=== PATIENT | male | born 1975 | race Caucasian/White ===

== ENCOUNTER 2016-11-23 00:48 | Emergency (ER) | payer SELFPAY ==
[~2016-11-23] VITALS: Ht 180.3 cm; Wt 59.9 kg
[2016-11-23 00:48] VITALS: Ht 180.3 cm; Wt 59.9 kg
[~2016-11-23 00:48] MED LIST: ACET-2321 PO; CYCL-375 PO; HYDR-4246 PO
--- OUTSIDE RECORDS SUMMARY | 2016-11-23 00:52 | XMS REPORT ---
Author Author Samy Griselflori [facility] Address [address], [place] [id number] Care Team Providers Care Patient Care Technician Instructor Name Role Phone Grisel Pablo Unavailable [phone] PROBLEMS Type Condition ICD9-CM Code OXI24-AF Code Onset Dates Condition Status SNOMED Code Assessment Superficial thrombophlebitis of left leg I80.02 Jul, Active [id number] ALLERGIES Unknown Allergies SOCIAL HISTORY No smoking Hx information available PLAN OF CARE Activity Details Pending Test CBC With Platelet and Differential Pending Test Comprehensive Metabolic Panel (CMP) Pending Test Sedimentation Rate Pending Test Lipid Panel Pending Test TSH Pending Test eGFR Pending Test Non-HDL Cholesterol ,Reason: VITAL SIGNS MEDICATIONS Medication Instructions Dosage Frequency Start Date End Date Duration Status Ibuprofen 800 MG Orally Three times a day 1 tablet 8h Jul,Aug 30 day(s) Active Tylenol Extra Strength 500 MG Orally every 6 hrs 1 tablet as needed 6h Active RESULTS Name Result Date Reference Range CBC With Platelet and Differential 2016-07-20 WBC 10.2 4.8-10.8 RBC 4.97 4.60-6.20 HGB 14.8 14.0-18.0 HCT 44.3 42.0-52.0 MCV 89.1 82.0-99.0 MCH 29.8 27.0-32.0 MCHC 33.4 32.0-36.0 RDW 13.0 11.5-14.5 MPV 11.0 8.8-14.8 Platelet Count 282 150-400 Immature Granulocytes 0.3 0.0-1.0 Absolute Neutrophils 5.52 1.90-7.00 Absolute Lymphocytes 3.14 0.80-3.30 Absolute Monocytes 0.90 0.30-1.00 Absolute Eosinophils 0.46 0.00-0.50 Absolute Basophils 0.14 0.00-0.20 Neutrophils 54 51-75 Lymphocytes 31 20-46 Monocytes 9 4-11 Eosinophils 5 0-4 Basophils 1 0-2 Comprehensive Metabolic Panel (CMP) 2016-07-20 Glucose 79 70-99 BUN 10 9-21 Creatinine 0.79 0.72-1.25 Calcium 9.9 8.9-10.5 Sodium 141 135-144 Potassium 4.8 3.5-5.2 Chloride 104 99-111 CO2 26 23-31 Albumin 4.6 3.5-5.0 Bilirubin Total 0.4 0.2-1.2 Alkaline Phosphatase 81 40-150 Protein 7.1 6.1-7.7 ALT (SGPT) 9 0-55 AST (SGOT) 15 5-34 Anion Gap 11 3-20 Globulin 2.5 1.8-4.0 Sedimentation Rate 2016-07-20 Sedimentation Rate 8 0-15 Lipid Panel 2016-07-20 Cholesterol 204 0-199 Triglycerides 121 0-149 HDL Cholesterol 32 40-84 LDL Cholesterol 148 0-130 VLDL Cholesterol 24 0-28 Cardiac Risk 6.4 0.0-5.7 TSH 2016-07-20 TSH 1.23 0.35-4.94 eGFR 2016-07-20 eGFR >60 >60 Non-HDL Cholesterol 2016-07-20 Non-HDL Cholesterol 172 0-159 PROCEDURES Procedure Date Ordered Related Diagnosis Body Site COMPLETE CBC W/AUTO DIFF WBC Jul 20, 2016 COMPREHENSIVE METABOLIC PANEL Jul 20, 2016 TSH Jul 20, 2016 SED RATE Jul 20, 2016 LIPID PANEL Jul 20, 2016 IMMUNIZATIONS No Known Immunizations
--- OUTSIDE RECORDS SUMMARY | 2016-11-23 00:53 | XMS REPORT | Continuity of Care Document ---
Author Author [facility] Organization [facility] Address Unknown Phone Unavailable Allergies Active Description Code Type Severity Reaction Onset Reported/Identified Relationship to Patient Clinical Status Yes No Known Medication Allergies NKMA N/A N/A 01/22/2014 Medications Problems Procedures Results Encounters ACCT No. Visit Date/Time Discharge Status Pt. Type Provider Facility Loc./Unit Complaint [id number] 07/14/2015 13:40:00 2014 23:59:00 DIS Outpatient Shirley Aguilar [facility] New FM rech pneumonia cxr befor jamie [id number] 06/29/2015 13:42:00 2014 23:59:00 DIS Outpatient Shirley Aguilar [facility] New FM HOSP FOLLOW UP [id number] 02/26/2015 14:45:00 2014 23:59:00 DIS Outpatient Buck Dobson T [facility] New Uro BLADDER WALL THICKENING [id number] 02/20/2015 12:57:00 2014 23:59:00 DIS Outpatient Oh Murphy Via [facility] FM dr leslie wanted his bladder cked [id number] 09/02/2014 10:47:00 2014 23:59:00 DIS Outpatient Oh Murphy Via [facility] New FM Abominal pain [id number] 08/12/2014 10:27:00 2014 23:59:00 DIS Outpatient Oh Murphy Via [facility] FM Stitches removed [id number] 07/09/2014 12:29:00 Document Registration
--- OUTSIDE RECORDS SUMMARY | 2016-11-23 00:53 | XMS REPORT | Continuity of Care Document ---
Author Author [facility] Organization [facility] Address Unknown Phone Unavailable Support Name Relationship Address Phone ELIANA RAPP MD Caregiver [address] [place] [address] [place] [address] Unavailable KIM BUCK Next Of Kin [address] [address] Insurance Providers Guarantor Bravo Leon Address [address] [address] Email [email or web address] Policy Number [id number] Subscriber's Name Bravo Leon Relationship 18 Self Group Number [id number] Advance Directives Directive Response Recorded Date/Time Advanced Directives Type None 01/22/16 3:35pm Chief Complaint and Reason for Visit Chief Complaint Back Pain or Injury Reason for Visit Low back pain Problems Active Problems Medical Problem Onset Date Status Abdominal pain Unknown Acute Chronic back pain Unknown Chronic Encephalopathy acute Unknown Resolved Fever and chills Unknown Resolved Headache Unknown Acute History of meningitis ~2008 Acute Laceration of left thumb Unknown Acute Migraine Unknown Pneumonia ~2014 Acute Severe sepsis Unknown Acute Tobacco dependence Unknown Chronic Vomiting Unknown Resolved Past Problems Medical Problem Onset Date Low back pain Unknown Superficial thrombophlebitis Unknown Medications Current Home Medications Medication Dose Units Route Directions Days Qty Instructions Start Date Acetaminophen (Tylenol) 325 Mg Tablet 1-2 Tab Oral As Needed 60 Tablet 12/27/15 Cyclobenzaprine Hcl 10 Mg Tablet 1 Tab Oral Three Times A Day 15 Tablet 01/22/16 Hydrocodone/Acetaminophen (Deep Gap 5-325 Tablet) 5-325 Tablet 1 Tab Oral Every 6 Hours as needed for Pain 12 Tablet 01/22/16 Past Home Medications Medication Directions Ordered Status Acetaminophen (Arthritis Pain Relief) 650 Mg Tablet.er, 2 Tab Oral Every 6 Hours as needed for Pain 03/05/15 Discontinued Acyclovir 800 Mg Tablet, 1 Tab Oral 5 Times Daily 06/19/15 Discontinued Amoxicillin 500 Mg Capsule, 1 Cap Oral Three Times A Day 06/19/15 Discontinued Hydrocodone/Acetaminophen (Hydrocodon-Acetaminoph 7.5-325) 1 Tab Tablet, 1 Tab Oral Every 4 Hours as needed for Pain 06/19/15 Discontinued Magnesium Hydroxide (Milk Of Magnesia) 30 Ml Suspension, 30 Ml Oral Daily as needed for Constipation 06/19/15 Discontinued None , 12/26/08 Discontinued Ondansetron Hcl 4 Mg Tablet, 4 Mg Oral Q6h/0300,0900,1500,2100 as needed for Nausea 06/19/15 Discontinued Social History Social History Problem Response Recorded Date/Time Onset Date Status Chewing Tobacco Status No 08/20/2012 10:50pm Not Applicable Not Applicable Hx Substance Use No 01/22/2016 3:47pm Not Applicable Not Applicable Hx Alcohol Use Y OCCASIONALLY 01/22/2016 3:47pm Not Applicable Not Applicable Has the pt used tobacco in the last 12 months Yes 06/16/2015 6:52am Not Applicable Not Applicable Tobacco Usage smoke 06/16/2015 9:00am Not Applicable Not Applicable Query Response Start Date Stop Date Smoking Status Current every day smoker Hospital Discharge Instructions No hospital discharge instructions. Plan of Care Discharge Date 01/22/16 5:00pm Disposition 01 DISCHARGED HOME, SELF-CARE Condition at Discharge Stable Instructions/Education Provided DI for Low Back Pain Prescriptions See Medication Section Additional Instructions/Education Apply head/ice to the area as needed for pain. May continue to wear the brace that you have on for comfort. Use the Deep Gap and the flexeril as needed over the weekend in addition to an anti-inflammatory such as Aleve or Ibuprofen. Follow up with Dr. Heredia next week if not improving. Care Plan and Goals Physician Care Plan Problem:Low back pain Goal: Follow up with primary care provider Instructions: Take medications and follow care plan as discussed/written Functional Status No functional status results. Allergies, Adverse Reactions, Alerts Allergen Type Severity Reaction Status Last Updated No Known Drug Allergies Allergy Unknown Active 01/22/16 Immunizations Query Response on File Recorded Date/Time Hx Influenza Vaccination No 06/16/15 6:52am Hx Pneumococcal Vaccination No 06/16/15 6:52am Hx Tetanus, Diptheria, Pertussis N "NOT FOR A WHILE" 08/24/14 2:05am Hx Influenza Vaccination No 06/16/15 6:52am Hx Tetanus, Diptheria, Pertussis N "NOT FOR A WHILE" 08/24/14 2:05am Influenza Vaccine Hx NONE 01/22/16 3:47pm Vital Signs Acute Vital Signs Vital Response Date/Time Temperature (Fahrenheit) 97.8 deg F (96.8 - 99.1) 01/22/2016 4:57pm Temperature (Calculated Celsius) 36.35044 degrees C (36.0 - 37.3) 01/22/2016 4:57pm Pulse Rate (adult) 66 bpm (60 - 100) 01/22/2016 4:57pm Respiratory Rate 14 breaths/min (10 - 20) 01/22/2016 4:57pm O2 Sat by Pulse Oximetry 99 % (90 - 100) 01/22/2016 4:57pm Blood Pressure 111/68 mm Hg 01/22/2016 4:57pm Blood Pressure 111/68 mm Hg 01/22/2016 4:57pm Height (Feet) 5 feet 01/22/2016 2:37pm Height (Inches) 11.00 inches 01/22/2016 2:37pm Weight (Kilograms) 58.000 kg 01/22/2016 2:37pm Body Mass Index (BMI) 17.0 01/22/2016 2:37pm Results No known relevant diagnostic tests, laboratory data and/or discharge summary. Procedures Procedure Status Date Provider(s) EMERGENCY DEPT VISIT Completed 12/27/15 Encounters Encounter Location Arrival/Admit Date Discharge/Depart Date Attending Provider Departed Emergency Room [facility] 01/22/16 2:18pm 01/22/16 5: 00pm ELIANA RAPP MD Departed Emergency Room [facility] 12/27/15 1:22am 12/27/15 2: 29am BRAVO ADDISON MD Recent Diagnosis
--- OUTSIDE RECORDS SUMMARY | 2016-11-23 00:53 | XMS REPORT | Referral Summary ---
Author Author [facility] Organization [facility] Address Unknown Phone Unavailable Care Team Providers Care Clinical Rehab Liaison Name Role Phone Charlie Murphy Primary Care Physician [phone] Encounter VC Date(s): 03/06/15 - 03/06/15 [facility] [address] [place] [address] [place] [id number]- Discharge Disposition: 01-Home or Self Care Attending Physician: Buck Dobson JR, MD Admitting Physician: Buck Dobson JR, MD Vital Signs No data available for this section Problem List Condition Effective Dates Status Health Status Informant Back pain, Active chronic(Confirmed) Bladder wall Active thickening(Confirmed ) Meningitis(Confirmed 08/07/90 Resolved ) Meningitis, 08/07/08 Resolved viral(Confirmed) Spinal Resolved Menigitis(Confirmed) Tobacco Active patient user(Confirmed) Allergies, Adverse Reactions, Alerts No Known Medication Allergies Medications No data available for this section Results No data available for this section Immunizations Vaccine Date Refusal Reason pneumococcal 23-polyvalent vaccine 06/29/15 Procedures Procedure Date Related Diagnosis Body Site Cystourethroscopy, with calibration and/or 03/06/15 dilation of urethral stricture or stenosis, with or without meatotomy, with or without injection procedure for cystography, male or female.. Cystourethroscopy, with dilation of bladder 03/06/15 for interstitial cystitis; local anesthesia.. Viral meningitis 2008 Meningitis1 1990 1Hospitalization Social History Social History Type Response Smoking Status Current every day smoker; Type: Cigarettes; Tobacco use per day: 1 Pack; Number of years: 25; Total pack years: 25; Started at age: 14 Assessment and Plan No data available for this section
--- OUTSIDE RECORDS SUMMARY | 2016-11-23 00:53 | XMS REPORT | Referral Summary ---
Author Author [facility] Organization [facility] Address Unknown Phone Unavailable Care Team Providers Care Associate Doctor Name Role Phone Charlie Murphy Primary Care Physician [phone] Encounter [facility] Date(s): 02/20/15 - 02/20/15 [facility], [address] [place] [id number]- Discharge Disposition: 01-Home or Self Care Attending Physician: Oh Murphy MD Admitting Physician: Oh Murphy MD Vital Signs Most recent to 1 oldest [Reference Range]: Temperature Tympanic 36.6 degC [36.6-38.1 degC] (02/20/15 1:02 PM) Peripheral Pulse 76 bpm Rate [60-100 bpm] (02/20/15 1:02 PM) Respiratory Rate 16 br/min [14-20 br/min] (02/20/15 1:02 PM) Blood Pressure 104/60 mmHg [90-140/60-90 mmHg] (02/20/15 1:02 PM) Problem List Condition Effective Dates Status Health Status Informant Back pain, Active chronic(Confirmed) Bladder wall Active thickening(Confirmed ) Meningitis(Confirmed 08/07/90 Resolved ) Meningitis, 08/07/08 Resolved viral(Confirmed) Spinal Resolved Menigitis(Confirmed) Tobacco Active patient user(Confirmed) Allergies, Adverse Reactions, Alerts No Known Medication Allergies Medications No Known Medications Results Hematology Most recent to 1 oldest [Reference Range]: WBC [4.8-10.8 9.0 10*3/uL 10*3/uL] (02/20/15 1:59 PM) RBC [4.60-6.20 4.66 10*6/uL 10*6/uL] (02/20/15 1:59 PM) Hgb [14.0-18.0 14.5 gm/dL gm/dL] (02/20/15 1:59 PM) Hct [42.0-52.0 %] 42.1 % (02/20/15 1:59 PM) MCV [82.0-99.0 fL] 90.3 fL (02/20/15 1:59 PM) MCH [27.0-32.0 pg] 31.1 pg (02/20/15 1:59 PM) MCHC [32.0-36.0 34.4 gm/dL gm/dL] (02/20/15 1:59 PM) RDW [11.5-14.5 %] 13.3 % (02/20/15 1:59 PM) Platelet [150-400 290 10*3/uL 10*3/uL] (02/20/15 1:59 PM) MPV [8.8-14.8 fL] 11.3 fL (02/20/15 1:59 PM) Immature 0.1 % Granulocytes (02/20/15 1:59 PM) [0.0-1.0 %] Neutrophils [51-75 59 % %] (02/20/15 1:59 PM) Lymphocytes [20-46 28 % %] (02/20/15 1:59 PM) Monocytes [4-11 %] 10 % (02/20/15 1:59 PM) Eosinophils [0-4 %] 3 % (02/20/15 1:59 PM) Basophils [0-2 %] 1 % (02/20/15 1:59 PM) Neutro Absolute 5.27 10*3 [1.90-7.00 10*3] (02/20/15 1:59 PM) Lymph Absolute 2.55 10*3 [0.80-3.30 10*3] (02/20/15 1:59 PM) Hitchcock Absolute 0.85 10*3 [0.30-1.00 10*3] (02/20/15 1:59 PM) Eos Absolute 0.25 10*3 [0.00-0.50 10*3] (02/20/15 1:59 PM) Baso Absolute 0.06 10*3 [0.00-0.20 10*3] (02/20/15 1:59 PM) Chemistry Most recent to 1 oldest [Reference Range]: Sodium Lvl [135-144 141 mEq/L mEq/L] (02/20/15 1:59 PM) Potassium Lvl 4.4 mEq/L [3.5-5.2 mEq/L] (02/20/15 1:59 PM) Chloride [99-111 105 mEq/L mEq/L] (02/20/15 1:59 PM) CO2 [23-31 mEq/L] 30 mEq/L (02/20/15 1:59 PM) AGAP [3-20] 6 (02/20/15 1:59 PM) BUN [9-21 mg/dL] 12 mg/dL (02/20/15 1:59 PM) Glucose Lvl [70-99 85 mg/dL mg/dL] (02/20/15 1:59 PM) Creatinine Lvl 0.81 mg/dL [0.72-1.25 mg/dL] (02/20/15 1:59 PM) eGFR [>60 mL/min] >60 mL/min 1 (02/20/15 1:59 PM) Calcium Lvl 9.8 mg/dL [8.9-10.5 mg/dL] (02/20/15 1:59 PM) 1Result Comment: Multiply eGFR results by 1.21 for race. Urinalysis Most recent to 1 oldest [Reference Range]: UA Color DkYellow (02/20/15 2:02 PM) UA Appear Clear (02/20/15 2:02 PM) UA pH [5.0-8.0] 6.5 (02/20/15 2:02 PM) UA Leuk Est Trace [Negative] *ABN* (02/20/15 2:02 PM) UA Nitrite Negative [Negative] (02/20/15 2:02 PM) UA Protein Negative [Negative] (02/20/15 2:02 PM) UA Glucose Negative [Negative] (02/20/15 2:02 PM) UA Ketones Trace [Negative] *ABN* (02/20/15 2:02 PM) UA Urobilinogen 1.0 mg/dL [<1.0 mg/dL] (02/20/15 2:02 PM) UA Bili [Negative] Negative (02/20/15 2:02 PM) UA Blood [Negative] Negative (02/20/15 2:02 PM) UA Spec Grav 1.028 [1.003-1.030] (02/20/15 2:02 PM) Type Clean Catch (02/20/15 2:02 PM) UA WBC [0-4] 0-2 (02/20/15 2:02 PM) UA RBC [0-4] 0-4 (02/20/15 2:02 PM) Epithelial Cells 0-2 (02/20/15 2:02 PM) UA Hyal Cast [0-3] 4-6 *ABN* (02/20/15 2:02 PM) Microbiology Reports TEST: Urine Culture STATUS: Auth (Verified) BODY SITE: SOURCE: Urine COLLECTED DATE/TIME: 02/20/15 2:02 PM Urine Culture No growth Immunizations Vaccine Date Refusal Reason pneumococcal 23-polyvalent vaccine 06/29/15 Procedures Procedure Date Related Diagnosis Body Site Collection of venous blood by venipuncture 02/20/15 Viral meningitis 2008 Meningitis1 1990 1Hospitalization Social History Social History Type Response Smoking Status Current every day smoker; Type: Cigarettes; Tobacco use per day: 1 Pack; Number of years: 25; Total pack years: 25; Started at age: 14 Assessment and Plan Extracted from: Title: Office Visit Note Author: Oh Murphy MD Date: 02/20/15 Assessment/Plan Bladder wall thickening Plan: I am setting you up to see Dr. Dobson. I am going to check a urine test and blood test. I am obtaining your MRI from [facility]. Orders: Urine Culture
--- OUTSIDE RECORDS SUMMARY | 2016-11-23 00:53 | XMS REPORT | Continuity of Care Document ---
Author Author [facility] Organization [facility] Address Unknown Phone Unavailable Support Name Relationship Address Phone ALBA VARGHESE MD Caregiver [address] [place] [phone] MAEGAN LOPEZ MD Caregiver [address] [place] [phone] LITO LEON Next Of Kin Unknown [phone] Insurance Providers Payer Name Policy Number Subscriber Name Relationship [facility] [id number] Bravo Leon 16 Self Advance Directives Directive Response Recorded Date/Time Advanced Directives Type None 08/02/14 2:50pm Problems Medical Problems Problem Onset Date Status Laceration of left thumb Unknown Active Laceration of left thumb Unknown Active Medications Medication Dose Route Sig Days/Qty Instructions Order Date Discontinued Date Status [None] 12/26/08 08/21/12 Discontinued Social History Social History Problem Response Recorded Date/Time Chewing Tobacco Status No 08/20/2012 10:50pm Hx Substance Use No 08/02/2014 3:14pm Hx Alcohol Use No 08/02/2014 3:14pm Tobacco Usage smoke 08/02/2014 3:16pm Query Response Start Date Stop Date Smoking Status Current every day smoker Hospital Discharge Instructions No hospital discharge instructions. Plan of Care No plan of care. Functional Status Query Response Date Recorded Physical Hygiene Self August 02, 2014 3:14pm Disabilities None August 02, 2014 3:14pm Devices Used None August 02, 2014 3:14pm Dressing Self August 02, 2014 3:14pm Ambulation Self August 02, 2014 3:14pm Diet Self August 02, 2014 3:14pm Mental Status Alert August 02, 2014 3:20pm Disabilities None August 02, 2014 3:14pm Devices Used None August 02, 2014 3:14pm Physical Hygiene Self August 02, 2014 3:14pm Dressing Self August 02, 2014 3:14pm Ambulation Self August 02, 2014 3:14pm Diet Self August 02, 2014 3:14pm Allergies, Adverse Reactions, Alerts Allergen Type Severity Reaction Status Last Updated No Known Drug Allergies Allergy Unknown Active 08/21/12 Immunizations Name Given Type Hx Influenza Vaccination No Historical Hx Pneumococcal Vaccination No Historical Hx Tetanus, Diptheria, Pertussis N "NOT FOR A WHILE" Historical Hx Influenza Vaccination No Historical Hx Tetanus, Diptheria, Pertussis N "NOT FOR A WHILE" Historical Vital Signs Acute Vital Signs Vital Response Date/Time Temperature (Fahrenheit) 97.5 deg F (96.8 - 99.1) Temperature (Calculated Celsius) 36.58656 degrees C (36.0 - 37.3) Pulse Rate (adult) 67 bpm (60 - 100) Respiratory Rate 20 breaths/min (10 - 20) O2 Sat by Pulse Oximetry 98 % (90 - 100) Blood Pressure 109/62 mm Hg Results Test Source Date Result Interp. Ref. Range Comments Activated Partial Thromboplast Time January 16, 2010 8:11pm 26.9 SEC N 24- 36 Alanine Aminotransferase (ALT/SGPT) August 20, 2012 11:05pm 24 U/L N 21 -72 Albumin August 20, 2012 11:05pm 4.4 G/DL N 3.5-5.0 Albumin/Globulin Ratio August 20, 2012 11:05pm 1.5 RATIO N 1.1-2.2 Alkaline Phosphatase August 20, 2012 11:05pm 77 U/L N 38-126 Anion Gap August 20, 2012 11:05pm 11 MEQ/L N 5-15 Aspartate Amino Transf (AST/SGOT) August 20, 2012 11:05pm 21 U/L N 17- 59 B-Type Natriuretic Peptide January 16, 2010 8:11pm < 15 PG/ML L 15-100 BUN/Creatinine Ratio August 20, 2012 11:05pm 14 RATIO N 6-26 Band Neutrophils # December 27, 2008 4:50am 0.0 T/MM3 - Band Neutrophils % December 27, 2008 4:50am 0.0 % N 0-6 Basophils # (Auto) August 20, 2012 11:05pm 0.1 T/MM3 N 0-0.2 Basophils # (Manual) December 27, 2008 4:50am 0.0 T/MM3 N 0-0.2 Basophils % (Manual) December 27, 2008 4:50am 0.0 % N 0-2 Basophils (%) (Auto) August 20, 2012 11:05pm 0.7 % N 0-2 Blood Urea Nitrogen August 20, 2012 11:05pm 11.0 MG/DL N 9-20 CSF Color December 26, 2008 1:45pm Colorless - Has specimen been collected /obtained? Y CSF Glucose December 26, 2008 1:45pm 57 MG/DL N 40-70 Has specimen been collected/obtained? Y CSF Lymphocytes December 26, 2008 1:45pm 91 % - Has specimen been collected/obtained? Y CSF Monocytes December 26, 2008 1:45pm 9 % - Has specimen been collected/ obtained? Y CSF RBC December 26, 2008 1:45pm 12 /MM3 H 0-0 Has specimen been collected/ obtained? Y CSF Total Protein December 26, 2008 1:45pm 120 MG/DL H 12-60 Has specimen been collected/obtained? Y CSF Turbidity December 26, 2008 1:45pm Clear - Has specimen been collected /obtained? Y CSF WBC December 26, 2008 1:45pm 188 /MM3 H 0-5 Has specimen been collected/ obtained? Y CSF West Nile Virus IgM Antibody December 26, 2008 1:45pm Send out - Calcium Level August 20, 2012 11:05pm 9.2 MG/DL N 8.4-10.2 Calculated Osmolality August 20, 2012 11:05pm 269 MOSM/KG N 261-280 Carbon Dioxide Level August 20, 2012 11:05pm 31 MEQ/L H 22-30 Chlamydia Direct Antigen Assay May 22, 2008 11:00am Negative - Chloride Level August 20, 2012 11:05pm 99 MEQ/L N 98-107 Creatinine August 20, 2012 11:05pm 0.8 MG/DL N 0.8-1.5 D-Dimer January 16, 2010 8:16pm 28 NG/ML N 0-224 <224 NG/ML=PRESUMPTIVE NEGATIVE FOR PE OR DVT>224 NG/ML=ADDITIONAL EVALUATION FOR PE OR DVT RECOMMENDED Eosinophils # (Auto) August 20, 2012 11:05pm 0.2 T/MM3 N 0-0.5 Eosinophils # (Manual) January 16, 2010 8:11pm 0.5 T/MM3 N 0-0.5 Eosinophils % (Manual) January 16, 2010 8:11pm 4.0 % N 0-4 Eosinophils (%) (Auto) August 20, 2012 11:05pm 1.8 % N 0-4 Globulin August 20, 2012 11:05pm 2.9 G/DL N 2.4-3.6 Glucose Level August 20, 2012 11:05pm 83 MG/DL N 75-110 Group B Streptococcus Antigen December 26, 2008 1:45pm Negative - Has specimen been collected/obtained? Y Hematocrit August 20, 2012 11:05pm 42.7 % N 41-53 Hemoglobin August 20, 2012 11:05pm 14.4 GM/DL N 13.5-17.5 Hepatitis A IgM Antibody May 22, 2008 12:02pm Negative - Hepatitis B Core IgM Antibody May 22, 2008 12:02pm Negative - Hepatitis B Surface Antigen May 22, 2008 12:02pm Negative - Hepatitis C Antibody May 22, 2008 12:02pm Negative - Herpes Simplex Virus DNA (PCR) December 26, 2008 1:45pm Sent out - Influenza Type A Antigen December 26, 2008 12:22pm Negative - Influenza Type B Antigen December 26, 2008 1:45pm Negative - Has specimen been collected/obtained? Y Lipase August 20, 2012 11:05pm 70 U/L N 23-300 Lymphocytes # (Auto) August 20, 2012 11:05pm 3.5 T/MM3 N 1-4.8 Lymphocytes # (Manual) January 16, 2010 8:11pm 2.1 T/MM3 N 1-4.8 Lymphocytes % (Manual) January 16, 2010 8:11pm 18.0 % L 23-45 Lymphocytes (%) (Auto) August 20, 2012 11:05pm 28.9 % N 23-45 Mean Corpuscular Hemoglobin August 20, 2012 11:05pm 29.8 UUG N 26-34 Mean Corpuscular Hemoglobin Concent August 20, 2012 11:05pm 33.7 GM/DL N 31-37 Mean Corpuscular Volume August 20, 2012 11:05pm 88.2 UM3 N 80-100 Mean Platelet Volume August 20, 2012 11:05pm 10.7 UM3 N 9.4-12.4 Monocytes # (Auto) August 20, 2012 11:05pm 1.3 T/MM3 H 0-0.8 Monocytes # (Manual) January 16, 2010 8:11pm 0.8 T/MM3 N 0-0.8 Monocytes % (Manual) January 16, 2010 8:11pm 7.0 % N 0-9.0 Monocytes (%) (Auto) August 20, 2012 11:05pm 10.3 % H 0-9.0 N. meningitidis B/E. coli K1 December 26, 2008 1:45pm Negative - Has specimen been collected/obtained? Y N. meningitidis C/W 135 December 26, 2008 1:45pm Negative - Has specimen been collected/obtained? Y Neutrophils # (Auto) August 20, 2012 11:05pm 7.1 T/MM3 N 1.8-7.7 Neutrophils # (Manual) January 16, 2010 8:11pm 8.4 T/MM3 H 1.8-7.7 Neutrophils % (Manual) January 16, 2010 8:11pm 71.0 % H 33-66 Neutrophils (%) (Auto) August 20, 2012 11:05pm 58.1 % N 33-66 Platelet Count August 20, 2012 11:05pm 228 T/MM3 N 130-400 Potassium Level August 20, 2012 11:05pm 3.9 MEQ/L N 3.6-5 Prothromb Time International Ratio January 16, 2010 8:11pm 1.01 N 0.86- 1.10 THERAPUTIC RANGE=2.00-3.00 FOR ANTI-THROMBOSIS THERAPUTIC RANGE=2.50- 3.50 FOR IMPLANTED VALVE RDW Standard Deviation August 20, 2012 11:05pm 40.9 FL N 36.9-50.2 Rapid Plasma Reagin May 22, 2008 12:02pm Nonreactive - Red Blood Count August 20, 2012 11:05pm 4.84 M/MM3 N 4.50-5.90 Sodium Level August 20, 2012 11:05pm 141 MEQ/L N 134-144 Streptococcus pneumoniae Antigen December 26, 2008 1:45pm Negative - Has specimen been collected/obtained? Y Total Bilirubin August 20, 2012 11:05pm 0.50 MG/DL N 0.20-1.30 Total Protein August 20, 2012 11:05pm 7.3 G/DL N 6.3-8.2 Troponin I August 20, 2012 11:05pm < 0.012 ng/ml 0-0.12 White Blood Count August 20, 2012 11:05pm 12.1 T/MM3 H 4.5-11.0 Neisseria meningitidis A/Y Antigen December 26, 2008 1:45pm Negative - Has specimen been collected/obtained? Y HIV (1&2) Antibody Rapid May 22, 2008 12:02pm Negative - --- 23/03 1050 ---HIV previously reported as: NEGATIVE --- 05/23/08 1103 --- HIV previously reported as: --- 05/23/08 1050 --- HIV previously reported as: NEGATIVE Glomerular Filtration Rate Calc August 20, 2012 11:05pm 108 - Immature Granulocyte # (Auto) August 20, 2012 11:05pm 0.03 T/MM3 N 0.00 -0.03 Immature Granulocyte % (Auto) August 20, 2012 11:05pm 0.2 % N 0.0-0.5 Non-Respiratory Viral Culture December 26, 2008 1:45pm Send out - Gram Stain Cerebral Spinal Fluid December 26, 2008 1:45pm Procedures No known history of procedures. Encounters Encounter Location Date/Time Departed Emergency Room [facility] 08/02/14 12:24pm Recent Diagnosis
--- OUTSIDE RECORDS SUMMARY | 2016-11-23 00:53 | XMS REPORT | Continuity of Care Document ---
Author Author [facility] Organization [facility] Address Unknown Phone Unavailable Support Name Relationship Address Phone ORESTES AREVALO Caregiver [facility] [address] [place] [address] ALBA VARGHESE MD Caregiver [address] [place] [address] [phone] LITO LEON Next Of Kin Unknown [phone] Insurance Providers Payer Name Policy Number Subscriber Name Relationship [facility] [id number] Bravo Leon 16 Self Advance Directives Directive Response Recorded Date/Time Advanced Directives Type None 08/24/14 2:05am Problems Medical Problems Problem Onset Date Status Laceration of left thumb Unknown Active Laceration of left thumb Unknown Active Abdominal pain Unknown Active Medications Medication Dose Route Sig Days/Qty Instructions Order Date Discontinued Date Status [None] 12/26/08 08/21/12 Discontinued [No Known Medications] 08/24/14 Active Tramadol HCl 50 Mg PO Q6H/0300,0900,1500,2100 For PAIN 12 Qty Take 1 tablet, by mouth, every 6 hours. 08/24/14 Active Social History Social History Problem Response Recorded Date/Time Chewing Tobacco Status No 08/20/2012 10:50pm Hx Substance Use No 08/24/2014 2:05am Hx Alcohol Use No 08/24/2014 2:05am Tobacco Usage smoke 08/02/2014 3:16pm Query Response Start Date Stop Date Smoking Status Current every day smoker Hospital Discharge Instructions No hospital discharge instructions. Plan of Care No plan of care. Functional Status Query Response Date Recorded Physical Hygiene Self August 24, 2014 2:05am Disabilities None August 24, 2014 2:05am Devices Used None August 24, 2014 2:05am Dressing Self August 24, 2014 2:05am Ambulation Self August 24, 2014 2:05am Diet Self August 24, 2014 2:05am Mental Status Alert Oriented August 24, 2014 2:05am Disabilities None August 24, 2014 2:05am Devices Used None August 24, 2014 2:05am Physical Hygiene Self August 24, 2014 2:05am Dressing Self August 24, 2014 2:05am Ambulation Self August 24, 2014 2:05am Diet Self August 24, 2014 2:05am Allergies, Adverse Reactions, Alerts Allergen Type Severity Reaction Status Last Updated No Known Drug Allergies Allergy Unknown Active 08/24/14 Immunizations Name Given Type Hx Influenza Vaccination No Historical Hx Pneumococcal Vaccination No Historical Hx Tetanus, Diptheria, Pertussis N "NOT FOR A WHILE" Historical Hx Influenza Vaccination No Historical Hx Tetanus, Diptheria, Pertussis N "NOT FOR A WHILE" Historical Tdap 08/02/14 Administered Vital Signs Acute Vital Signs Vital Response Date/Time Temperature (Fahrenheit) 97.1 deg F (96.8 - 99.1) Temperature (Calculated Celsius) 36.88889 degrees C (36.0 - 37.3) Pulse Rate (adult) 73 bpm (60 - 100) Respiratory Rate 18 breaths/min (10 - 20) O2 Sat by Pulse Oximetry 100 % (90 - 100) Blood Pressure 118/68 mm Hg Height 5 ft 11 in Weight 129 lb Body Mass Index 18.0 kg/m^2 Results Test Source Date Result Interp. Ref. Range Comments Activated Partial Thromboplast Time January 16, 2010 8:11pm 26.9 SEC N 24- 36 Alanine Aminotransferase (ALT/SGPT) August 24, 2014 2:32am 29 U/L N 21- 72 Albumin August 24, 2014 2:32am 4.9 G/DL N 3.5-5.0 Albumin/Globulin Ratio August 24, 2014 2:32am 1.7 RATIO N 1.1-2.2 Alkaline Phosphatase August 24, 2014 2:32am 71 U/L N 38-126 Amylase Level August 24, 2014 2:32am 62 U/L N 30-110 Anion Gap August 24, 2014 2:32am 11 MEQ/L N 5-15 Aspartate Amino Transf (AST/SGOT) August 24, 2014 2:32am 25 U/L N 17- 59 B-Type Natriuretic Peptide January 16, 2010 8:11pm < 15 PG/ML L 15-100 BUN/Creatinine Ratio August 24, 2014 2:32am 19 RATIO N 6-26 Band Neutrophils # December 27, 2008 4:50am 0.0 T/MM3 - Band Neutrophils % December 27, 2008 4:50am 0.0 % N 0-6 Basophils # (Auto) August 24, 2014 2:32am 0.1 T/MM3 N 0-0.2 Basophils # (Manual) December 27, 2008 4:50am 0.0 T/MM3 N 0-0.2 Basophils % (Manual) December 27, 2008 4:50am 0.0 % N 0-2 Basophils (%) (Auto) August 24, 2014 2:32am 0.9 % N 0-2 Blood Urea Nitrogen August 24, 2014 2:32am 15.0 MG/DL N 9-20 CSF Color December 26, [...] 1:45pm Send out - Calcium Level August 24, 2014 2:32am 9.9 MG/DL N 8.4-10.2 Calculated Osmolality August 24, 2014 2:32am 269 MOSM/KG N 261-280 Carbon Dioxide Level August 24, 2014 2:32am 29 MEQ/L N 22-30 Chlamydia Direct Antigen Assay May 22, 2008 11:00am Negative - Chloride Level August 24, 2014 2:32am 100 MEQ/L N 98-107 Creatinine August 24, 2014 2:32am 0.8 MG/DL N 0.8-1.5 D-Dimer January 16, 2010 8:16pm 28 NG/ML N 0-224 <224 NG/ML=PRESUMPTIVE NEGATIVE FOR PE OR DVT>224 NG/ML=ADDITIONAL EVALUATION FOR PE OR DVT RECOMMENDED Eosinophils # (Auto) August 24, 2014 2:32am 0.6 T/MM3 H 0-0.5 Eosinophils # (Manual) January 16, 2010 8:11pm 0.5 T/MM3 N 0-0.5 Eosinophils % (Manual) January 16, 2010 8:11pm 4.0 % N 0-4 Eosinophils (%) (Auto) August 24, 2014 2:32am 5.3 % H 0-4 Globulin August 24, 2014 2:32am 2.9 G/DL N 2.4-3.6 Glucose Level August 24, 2014 2:32am 87 MG/DL N 75-110 Group B Streptococcus Antigen December 26, 2008 1:45pm Negative - Has specimen been collected/obtained? Y Hematocrit August 24, 2014 2:32am 41.6 % N 41-53 Hemoglobin August 24, 2014 2:32am 14.1 GM/DL N 13.5-17.5 Hepatitis A IgM Antibody [...] Has specimen been collected/obtained? Y Lipase August 24, 2014 2:32am 84 U/L N 23-300 Lymphocytes # (Auto) August 24, 2014 2:32am 4.1 T/MM3 N 1-4.8 Lymphocytes # (Manual) January 16, 2010 8:11pm 2.1 T/MM3 N 1-4.8 Lymphocytes % (Manual) January 16, 2010 8:11pm 18.0 % L 23-45 Lymphocytes (%) (Auto) August 24, 2014 2:32am 38.7 % N 23-45 Mean Corpuscular Hemoglobin August 24, 2014 2:32am 30.5 UUG N 26-34 Mean Corpuscular Hemoglobin Concent August 24, 2014 2:32am 33.9 GM/DL N 31-37 Mean Corpuscular Volume August 24, 2014 2:32am 90.0 UM3 N 80-100 Mean Platelet Volume August 24, 2014 2:32am 10.5 UM3 N 9.4-12.4 Monocytes # (Auto) August 24, 2014 2:32am 0.8 T/MM3 N 0-0.8 Monocytes # (Manual) January 16, 2010 8:11pm 0.8 T/MM3 N 0-0.8 Monocytes % (Manual) January 16, 2010 8:11pm 7.0 % N 0-9.0 Monocytes (%) (Auto) August 24, 2014 2:32am 7.6 % N 0-9.0 N. meningitidis B/E. coli K1 December 26, 2008 1:45pm Negative - Has specimen been collected/obtained? Y N. meningitidis C/W 135 December 26, 2008 1:45pm Negative - Has specimen been collected/obtained? Y Neutrophils # (Auto) August 24, 2014 2:32am 5.0 T/MM3 N 1.8-7.7 Neutrophils # (Manual) January 16, 2010 8:11pm 8.4 T/MM3 H 1.8-7.7 Neutrophils % (Manual) January 16, 2010 8:11pm 71.0 % H 33-66 Neutrophils (%) (Auto) August 24, 2014 2:32am 47.2 % N 33-66 Platelet Count August 24, 2014 2:32am 240 T/MM3 N 130-400 Potassium Level August 24, 2014 2:32am 3.9 MEQ/L N 3.6-5 Prothromb Time International Ratio January 16, 2010 8:11pm 1.01 N 0.86- 1.10 THERAPUTIC RANGE=2.00-3.00 FOR ANTI-THROMBOSIS THERAPUTIC RANGE=2.50- 3.50 FOR IMPLANTED VALVE RDW Standard Deviation August 24, 2014 2:32am 41.2 FL N 36.9-50.2 Rapid Plasma Reagin May 22, 2008 12:02pm Nonreactive - Red Blood Count August 24, 2014 2:32am 4.62 M/MM3 N 4.50-5.90 Sodium Level August 24, 2014 2:32am 140 MEQ/L N 134-144 Streptococcus pneumoniae Antigen December 26, 2008 1:45pm Negative - Has specimen been collected/obtained? Y Total Bilirubin August 24, 2014 2:32am 0.40 MG/DL N 0.20-1.30 Total Protein August 24, 2014 2:32am 7.8 G/DL N 6.3-8.2 Troponin I August 20, 2012 11:05pm < 0.012 ng/ml 0-0.12 Urine Bilirubin August 24, 2014 2:36am Negative - Has specimen been collected/obtained? Y Urine Blood August 24, 2014 2:36am Negative - Has specimen been collected/obtained? Y Urine Collection Type August 24, 2014 2:36am Cleancatch-midstream - Has specimen been collected/obtained? Y Urine Color August 24, 2014 2:36am Yellow - Has specimen been collected/obtained? Y Urine Glucose (UA) August 24, 2014 2:36am Negative - Has specimen been collected/obtained? Y Urine Ketones August 24, 2014 2:36am Negative - Has specimen been collected/obtained? Y Urine Leukocyte Esterase August 24, 2014 2:36am Negative - Has specimen been collected/obtained? Y Urine Nitrite August 24, 2014 2:36am Negative - Has specimen been collected/obtained? Y Urine Protein August 24, 2014 2:36am Negative - Has specimen been collected/obtained? Y Urine Specific [place] August 24, 2014 2:36am 1.025 - Has specimen been collected/obtained? Y Urine Turbidity August 24, 2014 2:36am Clear - Has specimen been collected/obtained? Y Urine Urobilinogen August 24, 2014 2:36am 1.0 EU/DL - Has specimen been collected/obtained? Y Urine pH August 24, 2014 2:36am 6.5 - Has specimen been collected/ obtained? Y White Blood Count August 24, 2014 2:32am 10.6 T/MM3 N 4.5-11.0 Chemistry Specimen Hemolysis August 24, 2014 2:32am 17 N 0-25 0-25: No Hemolysis.26-70: Slight Hemolysis - can falsely elevate K and Urine Protein. 71-285: Moderate Hemolysis - can falsely elevate K, Troponin I, CA 19-9, PTH, CSF GLucose, and Urine Protein, and can falsely decrease Phenytoin. 286-999: Gross Hemolysis - can falsely elevate K, Troponin I, CA 19-9, PTH, CSF Glucose, and Urine Protine, and can falsely decrease Phenytoin. Recommend specimen recollection. Urinalysis Comment August 24, 2014 2:36am Microscopic not ind. - Has specimen been collected/obtained? Y Neisseria meningitidis A/Y Antigen December 26, 2008 1:45pm Negative - Has specimen been collected/obtained? Y HIV (1&2) Antibody Rapid May 22, 2008 12:02pm Negative - --- 23/03 105 ---HIV previously reported as: NEGATIVE --- 05/23/08 1103 --- HIV previously reported as: --- 05/23/08 105 --- HIV previously reported as: NEGATIVE Turbidity August 24, 2014 2:32am < 20 0-20 Glomerular Filtration Rate Calc August 24, 2014 2:32am 107 - Immature Granulocyte # (Auto) August 24, 2014 2:32am 0.03 T/MM3 N 0.00- 0.03 Immature Granulocyte % (Auto) August 24, 2014 2:32am 0.3 % N 0.0-0.5 Icterus Index August 24, 2014 2:32am < 2 0-7 Non-Respiratory Viral Culture December 26, 2008 1:45pm Send out - Gram Stain Cerebral Spinal Fluid December 26, 2008 1:45pm Procedures Procedure Status Date Provider(s) RPR S/N/AX/GEN/TRNK 2.5CM/< completed 08/02/14 MAEGAN LOPEZ MD IMMUNIZATION ADMIN completed 08/02/14 TDAP VACCINE 7 YRS/> IM completed 08/02/14 EMERGENCY DEPT VISIT completed 08/02/14 [id number]"INJECTION, BUPIVICAINE HYDROCHLORIDE, 30 ML" completed 08/02/14 Encounters Encounter Location Date/Time Departed Emergency Room [facility] 08/24/14 1:49am Departed Emergency Room [facility] 08/02/14 12:24pm Recent Diagnosis
--- OUTSIDE RECORDS SUMMARY | 2016-11-23 00:53 | XMS REPORT | Referral Summary ---
Author Organization Unknown Address Unknown Phone Unavailable Care Team Providers Care Geological Engineering Teacher Name Role Phone Charlie Murphy Primary Care Physician [phone] Encounter VC Date(s): 09/02/14 - 09/02/14 [facility], [place], Family [address] [place] [id number] Discharge Diagnosis: Abdominal pain Discharge Disposition: Home or Self Care Attending Physician: Oh Murphy MD Admitting Physician: Oh Murphy MD Vital Signs Most recent to 1 oldest [Reference Range]: Temperature Oral 36.2 degC [35.8-37.3 degC] (09/02/14 10:57 AM) Peripheral Pulse 79 bpm Rate [60-100 bpm] (09/02/14 10:57 AM) Respiratory Rate 16 br/min [14-20 br/min] (09/02/14 10:57 AM) Blood Pressure 121/72 mmHg [90-140/60-90 mmHg] (09/02/14 10:57 AM) Most recent to 1 oldest [Reference Range]: SpO2 96 % (09/02/14 10:57 AM) Problem List Condition Effective Dates Status Health Status Informant Back pain, Active chronic(Confirmed) Meningitis(Confirmed 08/07/90 Resolved ) Meningitis, 08/07/08 Resolved viral(Confirmed) Spinal Resolved Menigitis(Confirmed) Tobacco Active patient user(Confirmed) Allergies, Adverse Reactions, Alerts No Known Medication Allergies Medications aspirin 325 mg oral tablet 2 tabs, Oral, Daily, as needed for pain, # 30 tabs, 0 Refill(s) Start Date: 02/14/14 Status: Ordered traMADol 50 mg oral tablet 1 tabs, Oral, Daily, as needed for pain, 0 Refill(s) Start Date: 09/02/14 Status: Ordered Results Hematology Most recent to 1 oldest [Reference Range]: WBC [4.8-10.8 K/uL] 10.1 K/uL (09/02/14 11:30 AM) RBC [4.60-6.20 M/uL] 4.72 M/uL (09/02/14 11:30 AM) Hgb [14.0-18.0 14.6 gm/dL gm/dL] (09/02/14 11:30 AM) Hct [42.0-52.0 %] 41.9 % *LOW* (09/02/14 AM) MCV [82.0-99.0 fL] 88.8 fL (09/02/14 1130 AM) MCH [27.0-32.0 pg] 30.9 pg (09/02/14 11:30 AM) MCHC [32.0-36.0 34.8 gm/dL gm/dL] (09/02/14 11:30 AM) RDW [11.5-14.5 %] 12.9 % (09/02/14 11:30 AM) Platelet [150-400 270 K/uL K/uL] (09/02/14 11:30 AM) MPV [8.8-14.8 fL] 11.3 fL (09/02/14 11:30 AM) Immature 0.2 % Granulocytes (09/02/14:30 AM) [0.0-1.0 %] Neutrophils [51-75 56 % %] (09/02/14 11:30 AM) Lymphocytes [20-46 28 % %] (09/02/14 11:30 AM) Monocytes [4-11 %] 10 % (09/02/14 11:30 AM) Eosinophils [0-4 %] 5 % *HI* (09/02/14 1130 AM) Basophils [0-2 %] 1 % (09/02/14 11:30 AM) Neutro Absolute 5.64 THOUS [1.90-7.00 THOUS] (09/02/14 11:30 AM) Lymph Absolute 2.83 THOUS [0.80-3.30 THOUS] (09/02/14 11:30 AM) [place] Absolute 1.00 THOUS [0.30-1.00 THOUS] (09/02/14 11:30 AM) Eos Absolute 0.51 THOUS [0.00-0.50 THOUS] *HI* (1/27/15 11:30 AM) Baso Absolute 0.11 THOUS [0.00-0.20 THOUS] (09/02/14 11:30 AM) Chemistry Most recent to 1 oldest [Reference Range]: Sodium Lvl [135-144 140 mEq/L mEq/L] (09/02/14 11:30 AM) Potassium Lvl 5.3 mEq/L [3.5-5.2 mEq/L] *HI* (09/02/14 11:30 AM) Chloride [99-111 106 mEq/L mEq/L] (09/02/14 11:30 AM) CO2 [23-31 mEq/L] 28 mEq/L (09/02/14 11:30 AM) AGAP [3-20] 6 (09/02/14 11:30 AM) BUN [9-21 mg/dL] 8 mg/dL *LOW* (09/02/14 11:30 AM) Glucose Lvl [70-99 84 mg/dL mg/dL] (09/02/14 11:30 AM) Creatinine Lvl 0.80 mg/dL [0.72-1.25 mg/dL] (09/02/14 11:30 AM) eGFR [>60 mL/min] >60 mL/min 1 (09/02/14 11:30 AM) Calcium Lvl 10.1 mg/dL [8.9-10.5 mg/dL] (09/02/14 11:30 AM) Albumin Lvl [3.5-5.0 4.5 gm/dL gm/dL] (09/02/14 11:30 AM) Total Protein 6.9 gm/dL [6.4-8.3 gm/dL] (09/02/14 11:30 AM) Globulin [1.8-4.0 2.4 gm/dL gm/dL] (09/02/14 11:30 AM) ALT [0-55 unit/L] 11 unit/L (09/02/14 11:30 AM) AST [5-34 unit/L] 16 unit/L (09/02/14 11:30 AM) Alk Phos [40-150 75 unit/L unit/L] (09/02/14 11:30 AM) Bili Total [0.2-1.2 0.5 mg/dL mg/dL] (09/02/14 11:30 AM) 1Result Comment: Multiply eGFR results by 1.21 for race. Urinalysis Most recent to 1 oldest [Reference Range]: UA Color Yellow (09/02/14 11:35 AM) UA Appear Clear (09/02/14 11:35 AM) UA pH [5.0-8.0] 7.0 (09/02/14 11:35 AM) UA Leuk Est Negative [Negative] (09/02/14 11:35 AM) UA Nitrite Negative [Negative] (09/02/14 11:35 AM) UA Protein Negative [Negative] (09/02/14 11:35 AM) UA Glucose Negative [Negative] (09/02/14 11:35 AM) UA Ketones Negative [Negative] (09/02/14 11:35 AM) UA Urobilinogen 0.2 mg/dL [<1.0 mg/dL] (09/02/14 11:35 AM) UA Bili [Negative] Negative (09/02/14 11:35 AM) UA Blood [Negative] Negative (09/02/14 11:35 AM) UA Spec Grav 1.025 [1.003-1.030] (09/02/14 11:35 AM) Type Clean Catch (09/02/14 11:35 AM) Immunizations No data available for this section Procedures Procedure Date Related Diagnosis Body Site Collection of venous blood by venipuncture 09/02/1406-Aug-2014 00:38:50<$> Viral meningitis 2008 Meningitis1 1990 1Hospitalization Social History Social History Type Response Smoking Status Current every day smoker; Type: Cigarettes; Tobacco use per day: 1 Pack; Number of years: 25; Total pack years: 25; Started at age: 14 Assessment and Plan Extracted from: Title: Office Visit Note Author: Oh Murphy MD Date: 09/02/14 Assessment/Plan Abdominal pain I would use Tylenol or ibuprofen. I am going to check some lab tests CT scan. I will update your plan at that time. If you develop bloody stools or vomiting high fevers or any concerning signs or symptoms call or let us know. Ordered: CBC w/ Differential Comprehensive Metabolic Panel CT ABD & Pelv w/contrast Urinalysis with Culture if Indicated
--- OUTSIDE RECORDS SUMMARY | 2016-11-23 00:53 | XMS REPORT | Referral Summary ---
Author Author [facility] [place] Organization [facility] Address Unknown Phone Unavailable Care Team Providers Care Last Picker Name Role Phone Charlie Murphy Primary Care Physician [phone] Encounter VC Date(s): 06/29/15 - 06/29/15 [facility] [place] [address] [place] [id number] Discharge Diagnosis: Tobacco user Discharge Diagnosis: Sepsis Discharge Diagnosis: Aseptic meningitis Discharge Diagnosis: Pneumonia Discharge Disposition: 01-Home or Self Care Attending Physician: Shirley Aguilar APRN Admitting Physician: Shirley Aguilar APRN Vital Signs Most recent to 1 oldest [Reference Range]: Temperature Tympanic 36.7 degC [36.6-38.1 degC] (06/29/15 1:53 PM) Peripheral Pulse 88 bpm Rate [60-100 bpm] (06/29/15 1:53 PM) Blood Pressure 100/70 mmHg [90-140/60-90 mmHg] (06/29/15 1:53 PM) Problem List Condition Effective Dates Status Health Status Informant Back pain, Active chronic(Confirmed) Bladder wall Active thickening(Confirmed ) Meningitis(Confirmed 08/07/90 Resolved ) Meningitis, 08/07/08 Resolved viral(Confirmed) Spinal Resolved Menigitis(Confirmed) Tobacco Active patient user(Confirmed) Allergies, Adverse Reactions, Alerts No Known Medication Allergies Medications ondansetron 4 mg oral tablet 4 mg 1 tabs, Oral, q6hr, as needed for nausea/vomiting, 0 Refill(s) Start Date: 06/23/15 Status: Ordered Results No data available for this section Immunizations Vaccine Date Refusal Reason pneumococcal 23-polyvalent vaccine 06/29/15 Procedures Procedure Date Related Diagnosis Body Site Viral meningitis 2008 Meningitis1990 1Hospitalization Social History Social History Type Response Smoking Status Current every day smoker; Type: Cigarettes; Tobacco use per day: 1 Pack; Number of years: 25; Total pack years: 25; Started at age: 14 Assessment and Plan Extracted from: Title: Office Visit Note-hosp f/u Author: Shirley Aguilar CARPET INSTALLER HELPER Date: Assessment/Plan 1.Pneumonia Clinically improved. Plan recheck in 2 weeks with a chest x- ray prior to office visit. Recommend patient take deun-uze-uorduai Mucinex as an expectorant. Strongly encourage smoking cessation. Patient not interested. Pneumovax counseled on and given. Patient to return to the office if symptoms get worse. Ordered: pneumococcal 23-polyvalent vaccine, 0.5 mL, IntraMuscular, Once, First Dose: 15:00:00 PC SUPPORT SPECIALIST, Stop Date: 06/29/15 15:00:00 PC SUPPORT SPECIALIST, Form: Vial Trans Care Mgmt 14 Day Disch 91413 XR Chest 2 Views 2.Aseptic meningitis Resolved. Ordered: Trans Care Mgmt 14 Day Disch 73433 3.Sepsis Resolved. Ordered: Trans Care Mgmt 14 Day Disch 12429 Tobacco user Encourage cessation. Ordered: Trans Care Mgmt 14 Day Disch [id number]
--- OUTSIDE RECORDS SUMMARY | 2016-11-23 00:53 | XMS REPORT | Continuity of Care Document ---
Author Author [facility] Organization [facility] Address Unknown Phone Unavailable Support Name Relationship Address Phone MAXWELL ADDISON MD Caregiver [address] [place] [address] [place] [address] Unavailable KIM BUCK Next Of Kin [address] [address] Insurance Providers Guarantor Maxwell Leon Address [address] [address] Email [email or web address] Policy Number [id number] Subscriber's Name Maxwell Leon Relationship 18 Self Group Number [id number] Chief Complaint and Reason for Visit Chief Complaint Lower Extremity Pain Reason for Visit Superficial thrombophlebitis Problems Active Problems Medical Problem Onset Date Status Abdominal pain Unknown Acute Chronic back pain Unknown Chronic Encephalopathy acute Unknown Resolved Fever and chills Unknown Resolved Headache Unknown Acute History of meningitis ~2008 Acute Laceration of left thumb Unknown Acute Migraine Unknown Pneumonia ~2014 Acute Severe sepsis Unknown Acute Tobacco dependence Unknown Chronic Vomiting Unknown Resolved Past Problems Medical Problem Onset Date Superficial thrombophlebitis Unknown Medications Current Home Medications Medication Dose Units Route Directions Days Qty Instructions Start Date Acetaminophen (Tylenol) 325 Mg Tablet 1-2 Tab Oral As Needed 60 Tablet 12/27/15 Past Home Medications Medication Directions Ordered Status [...] Applicable Not Applicable Hx Substance Use No 12/27/2015 1:34am Not Applicable Not Applicable Hx Alcohol Use Y OCCASIONALLY 12/27/2015 1:34am Not Applicable Not Applicable Has the pt used tobacco in the last 12 months Yes 06/16/2015 6:52am Not Applicable Not Applicable Tobacco Usage smoke 06/16/2015 9:00am Not Applicable Not Applicable Query Response Start Date Stop Date Smoking Status Current every day smoker Hospital Discharge Instructions No hospital discharge instructions. Plan of Care Discharge Date 12/27/15 2:29am Disposition 01 DISCHARGED HOME, SELF-CARE Condition at Discharge Improved Instructions/Education Provided DI for Superficial Thrombophlebitis Prescriptions See Medication Section Additional Instructions/Education Ibuprofen 600 mg every 6-8 hours for baseline pain control Use warm packs 2-3 times daily for comfort Wear compression stockings while at work See your primary physician or return for any significant worsening Care Plan and Goals Physician Care Plan Problem: Superficial thrombophlebitis Goal: Follow up with primary care provider Instructions: Take medications and follow care plan as discussed/written Ibuprofen 600 mg every 6-8 hours for baseline pain control Use warm packs 2-3 times daily for comfort Wear compression stockings while at work See your primary physician or return for any significant worsening Functional Status No functional status results. Allergies, Adverse Reactions, Alerts Allergen Type Severity Reaction Status Last Updated No Known Drug Allergies Allergy Unknown Active 12/27/15 Immunizations Query Response on File Recorded Date/Time Hx Influenza Vaccination No 06/16/15 6:52am Hx Pneumococcal Vaccination No 06/16/15 6:52am Hx Tetanus, Diptheria, Pertussis N "NOT FOR A WHILE" 08/24/14 2:05am Hx Influenza Vaccination No 06/16/15 6:52am Hx Tetanus, Diptheria, Pertussis N "NOT FOR A WHILE" 08/24/14 2:05am Influenza Vaccine Hx NONE 12/27/15 1:34am Vital Signs Acute Vital Signs Vital Response Date/Time Temperature (Fahrenheit) 97.9 deg F (96.8 - 99.1) 12/27/2015 2:29am Temperature (Calculated Celsius) 36.83757 degrees C (36.0 - 37.3) 12/27/2015 2:29am Pulse Rate (adult) 83 bpm (60 - 100) 12/27/2015 2:29am Respiratory Rate 16 breaths/min (10 - 20) 12/27/2015 2:29am O2 Sat by Pulse Oximetry 98 % (90 - 100) 12/27/2015 2:29am Blood Pressure 119/73 mm Hg 12/27/2015 2:29am Height (Feet) 5 feet 12/27/2015 1:25am Height (Inches) 11.00 inches 12/27/2015 1:25am Weight (Kilograms) 57.700 kg 12/27/2015 1:25am Body Mass Index (BMI) 17.0 12/27/2015 1:25am Results No known relevant diagnostic tests, laboratory data and/or discharge summary. Procedures No known history of procedures. Encounters Encounter Location Arrival/Admit Date Discharge/Depart Date Attending Provider Departed Emergency Room [facility] 12/27/15 1:22am 12/27/15 2: 29am MAXWELL ADDISON MD Recent Diagnosis
--- OUTSIDE RECORDS SUMMARY | 2016-11-23 00:53 | XMS REPORT | Referral Summary ---
Author Author [facility] [place] Organization [facility] Address Unknown Phone Unavailable Care Team Providers Care Senior User Experience Architect Name Role Phone Charlie Murphy Primary Care Physician [phone] Encounter Date(s): 07/14/15 - 07/14/15 [facility] [place], [address] [place] [id number] Discharge Diagnosis: Tobacco user Discharge Disposition: 01-Home or Self Care Attending Physician: Shirley Aguilar APRN Admitting Physician: Shirley Aguilar APRN Vital Signs Most recent to 1 oldest [Reference Range]: Temperature Tympanic 36.3 degC [36.6-38.1 degC] *LOW* (07/14/15 2:32 PM) Peripheral Pulse 72 bpm Rate [60-100 bpm] (07/14/15 2:32 PM) Blood Pressure 128/64 mmHg [90-140/60-90 mmHg] (07/14/15 2:32 PM) Problem List Condition Effective Dates Status Health Status Informant Back pain, Active chronic(Confirmed) Bladder wall Active thickening(Confirmed ) Meningitis(Confirmed 08/07/90 Resolved ) Meningitis, 08/07/08 Resolved viral(Confirmed) Spinal Resolved Menigitis(Confirmed) Tobacco Active patient user(Confirmed) Allergies, Adverse Reactions, Alerts No Known Medication Allergies Medications No Known Medications Results No data available for this section Immunizations Vaccine Date Refusal Reason pneumococcal 23-polyvalent vaccine 06/29/15 Procedures Procedure Date Related Diagnosis Body Site Viral meningitis 2008 Meningitis1 1990 1Hospitalization Social History Social History Type Response Smoking Status Current every day smoker; Type: Cigarettes; Tobacco use per day: 1 Pack; Number of years: 25; Total pack years: 25; Started at age: 14 Assessment and Plan Extracted from: Title: Office Visit Note-pneumonia Author: Shirley Aguilar APRN Date: 07/14/15 f/u Assessment/Plan Pneumonia Chest x-ray obtained and reviewed. No infiltrate noted upon my review. Await radiology interpretation. This with patient if he feels like he has recurrent symptoms to please let us know. Ordered: Office Visit Level 3 Est 54879 Tobacco user Encourage smoking cessation. Discussed with patient when available for help as he desires. Ordered: Office Visit Level 3 Est 97521
--- OUTSIDE RECORDS SUMMARY | 2016-11-23 00:53 | XMS REPORT | Referral Summary ---
Author Author [facility] Organization [facility] Address Unknown Phone Unavailable Care Team Providers Care Collector Of Internal Revenue Name Role Phone Charlie Murphy Primary Care Physician [phone] Encounter VC Date(s): 02/26/15 - 02/26/15 [facility] [address] [place] [address] [place] [id number]- Discharge Diagnosis: Abnormal CAT scan Discharge Disposition: 01-Home or Self Care Attending Physician: Buck Dobson JR, MD Admitting Physician: Buck Dobson JR, MD Referring Physician: Oh Murphy MD Vital Signs Most recent to 1 oldest [Reference Range]: Temperature Oral 36.7 degC [35.8-37.3 degC] (02/26/15 3:12 PM) Peripheral Pulse 85 bpm Rate [60-100 bpm] (02/26/15 3:12 PM) Respiratory Rate 99 br/min [14-20 br/min] *HI* (02/26/15 3:12 PM) Blood Pressure 120/78 mmHg [90-140/60-90 mmHg] (02/26/15 3:12 PM) Problem List Condition Effective Dates Status [...] 14 Assessment and Plan Extracted from: Title: Ambulatory Patient Education Author: Buck Dobson JR, MD Date : 02/26/15 Follow Up With: Where: When: Oh Murphy [address] [place] [address] Dr; [place] [address] Business (1) Within 3 to 5 days Comments: Follow Up With: Where: When: Buck Chou[address]; [place] [address] Business (1) In 2 weeks 03/12/2015 Comments: Extracted from: Title: Office Visit Note Author: Buck Dobson JR, MD Date: 02/26/15 Assessment/Plan Abnormal CAT scan Ordered: Office Visit Level 4 New [id number] Extracted from: Title: Office Visit Note Author: Buck Dobson JR, MD Date: 02/26/15 Assessment/Plan Abnormal CAT scan taking of the bladder wall, on a patient that still smokes 1 pack of cigarettes every day. Scheduled for cystoscopy possible bladder biopsy. Patient instructed to quit smoking and probably should talk to his family doctor with regards to quitting smoking. Procedures, risks, complications, and follow-up explained to patient with verbalize understanding. This was a 30 minute face to face visit with 1/2 of the visit devoted to counseling the patient. Ordered: Office Visit Level 4 New [id number]
[2016-11-23] MEDS ORDERED: NORMAL SALINE 1,000 ML IV ONE (01:32)
--- NOTE | 2016-11-23 01:44 | ERPDOC ---
Departure Disposition Decision Date: Nov 23, 2016 Disposition Decision Time: 03:09 Disposition: 01 DISCHARGED HOME, SELF-CARE Impression Impression Impression: Primary Impression: Costochondritis Severity: Moderate Condition: Improved Seen By: Physician only Referrals: ALESSANDRA ABEBE APRN (Family) 1 Week Patient Instructions: Noncardiac Chest Pain (ED), Chest Wall Pain (ED) Problems/Meds/Labs Reviewed?: Yes Medications reviewed and manag: Yes Additional Instructions: We have evaluated you for various causes of chest pain. We did not find any life -threatening causes of your chest pain. Follow up with your doctor later this week. Follow up care ordered?: Yes Mental Status: Alert, Oriented HPI - Chest Pain General Chief Complaint: Chest Pain Stated Complaint: CHEST PAIN Time Seen by Provider: 01:32 Source: patient Exam Limitations: no limitations HPI - Chest Pain Initial Comments 41yo man presents to the ER for evaluation of his chest pain. Pt has had sharp, left chest wall pain intermittently throughout the last 24 hours. 1-2 hours ago , the pain became much worse. Pain is worse with pressing on his rib; better with positioning. Pt had something similar in the past, but that was precipitated by a chronic cough. Occurred At: home Onset/Timing: Gradual, Constant Duration: 12-24 hrs Pain/Severity Scale: Now: 2/10, Worst: 6/10 Activities at Onset/Context: rest Location: anterior L 1 - Pain along 6th rib Quality: sharp, stabbing Modifying Factors: IMPROVES WITH: lying down, rest, WORSE WITH: breathing, coughing, palpation Associated Symptoms: denies symptoms Chest Pain Radiation: no radiation Nitro Today/Relief: no nitro taken today Aspirin Treatment Today: 81 mg x 4, provided by ED Prior Chest Pain/Cardiac Terry: no prior cardiac workup Hx of Similar Symptoms: Yes Allergies: Coded Allergies: No Known Drug Allergies (Verified Allergy, Unknown, 01/22/16) Viagra/ED med in past 36 hrs: No Past History Patient Surgical History Oral surgery Past Medical History Hx Echocardiogram: No Respiratory: pneumonia Male: UTI Neurological: migraines Musculoskeletal: back pain Infectious: hepatitis B, other Surgical History Denies Surgeries Family History Family PMH: FOUND: MS, diabetes Vaccines Hx Influenza Vaccination: No Hx Pneumococcal Vaccination: No Hx Tetanus, Diptheria, Pertuss: No ("NOT FOR A WHILE") Social History Smoking Status: Current every day smoker # of Packs/Tins per Day: 1 Substance Use Type: does not use Alcohol Intake: none Sexuality: female partner Review of Systems Cardiovascular Cardiac: chest pain All other Systems All Other Systems: Reviewed and Negative Physical Exam General General Nourishment: well nourished, well developed, appears stated age, no acute distress, adult, thin General Body Habitus: well groomed Vitals and Pain First Documented Vital Signs Date Time Temp Pulse Resp B/P Pulse Ox O2 Delivery O2 Flow Rate FiO2 11/23/16 00:48 97.7 75 18 140/83 100 Room Air Weight: Kilograms: Height (feet): 5 Height (inches): 11.00 Triage Pain Scale: RN VS reviewed by Provider: Yes Normal Exams: Head: Normocephalic w/o trauma Eyes: Pupils are PERRLA w/ EOMI, No scleral icterus, irritation ENMT: No facial trauma, nasal exudates, pharyngeal erythema Neck: Full range of motion, without adenopathy, JVD Lymphatic: No lymphadenopathy Musculoskeletal: No tenderness, or deformity noted Integumentary: No rashes, hives, or bruising noted Neurologic: Patient is alert, and oriented Psychiatric: Patient exhibits, appropriate attention Respiratory (brief) Respiratory: FOUND: clear all musa, equal bilaterally, symmetrical, NOT FOUND : rales, wheezes Comments Pain reproduced and worsened with palpation over pts 6th rib. Cardiovascular (brief) Cardiac: FOUND: regular rate, regular rhythm, NOT FOUND: click, gallop, murmur , pedal edema, peripheral edema, rub Capillary Refill: <2 sec Pulses: all distal extremities, equal, strong Abdomen (brief) Abdominal Brief: FOUND: bowel normo active x4, soft, NOT FOUND: distended, hepatosplenomegaly, pulsatile mass, tender Differential Diagnoses Considering: Acute MS, Anxiety/Panic, Angina, Costochondritis, Esophageal Spasm , GERD, Hyperventilation, Pericarditis, Pleurisy, Pneumothorax, Pneumonia, PSVT , Pulmonary Edema, Rib Fracture, Muscle Spasm Progress Results/Orders Orders Procedure Category Date Status Time Cbc W/Auto LAB 11/23/16 Complete Diff-Reflex Manual 01:32 Bmp - Basic Metabolic LAB 11/23/16 Complete Panel 01:32 Probnp LAB 11/23/16 Complete 01:32 Troponin I W LAB 11/23/16 Complete Hemolysis Index 01:32 INR LAB 11/23/16 Complete 01:32 EKG EKG 11/23/16 Taken 01:32 Chest 1 View RAD 11/23/16 Taken 01:32 Iv Lock (Ed Only) EDM 11/23/16 Transmitted 01:32 Normal Saline (Normal PHA 11/23/16 Complete Saline Iv) 01:32 Aspirin (Asa) PHA 11/23/16 Complete 01:45 D-Dimer LAB 11/23/16 Complete Lab Results Laboratory Tests Test 11/23/16 01:45 White Blood Count 9.3T/MM3 Red Blood Count 4.74M/MM3 Hemoglobin 14.2GM/DL Hematocrit 42.2% Mean Corpuscular Volume 89.0UM3 Mean Corpuscular Hemoglobin 30.0UUG Mean Corpuscular Hemoglobin Concent 33.6GM/DL RDW Standard Deviation 41.1FL Platelet Count 271T/MM3 Mean Platelet Volume 11.4UM3 Immature Granulocyte % (Auto) 0.1% Neutrophils (%) (Auto) 35.8% Lymphocytes (%) (Auto) 50.1% Monocytes (%) (Auto) 9.3% Eosinophils (%) (Auto) 3.8% Basophils (%) (Auto) 0.9% Absolute Immature Granulocyte (auto 0.01T/MM3 Absolute Neutrophils (auto) 3.3T/MM3 Absolute Lymphocytes (auto) 4.7T/MM3 Absolute Monocytes (auto) 0.9T/MM3 Absolute Eosinophils (auto) 0.4T/MM3 Absolute Basophils (auto) 0.1T/MM3 Prothromb Time International Ratio 0.99 D-Dimer < 150NG/ML Turbidity < 20 Sodium Level 145MEQ/L Potassium Level 3.7MEQ/L Chloride Level 104MEQ/L Carbon Dioxide Level 27MEQ/L Anion Gap 14MEQ/L Blood Urea Nitrogen 12.0MG/DL Creatinine 0.9MG/DL Glomerular Filtration Rate Calc 92 BUN/Creatinine Ratio 13RATIO Glucose Level 94MG/DL Calculated Osmolality 279MOSM/KG Calcium Level 9.6MG/DL Icterus Index < 2 Troponin I < 0.012ng/ml BT-Qpr-U-Type Natriuretic Peptide 105PG/ML Chemistry Specimen Hemolysis 19 Medications Current ED Medications Sodium Chloride (Normal Saline IV) 1,000 ml @ 0 mls/hr Q0M ONCE IV Last administered on 11/23/16t 01:45; Start 11/23/16 at 01:32; Stop 11/23/16 at 01:35 ; Status DC Aspirin (ASA) 324 mg O ONCE PO Last administered on 11/23/16t 01:45; Start at 01:45; Stop 11/23/16 at 01:46; Status DC Progress Progress Hx and PE not suggestive of ACS. Labs/rads negative for emergent causes of pts sx. Most likely costochondritis. Discussed dx, prognosis, and tx with pt, who voiced understanding. F/u with PCM. EKG EKG : Rate: 60-100 Rhythm: sinus [place]: normal QRS: non-specific block Intervals: normal ST/T: normal Interpreted by: signing physician Xray Xray : Xray: CXR Portable Interpretation: Normal, Interpreted by Md CINDY ADKINS DO Nov 23, 2016 01:44 CINDY ADKINS DO Nov 23, 2016 01:44
[2016-11-23] MEDS ORDERED: ASPIRIN 81 MG CHEWABLE TABLET PO ONE (01:45)
[2016-11-23 02:11] LABS: BASOPHILS # (AUTO) 0.1 T/MM3 (0-0.2); BASOPHILS % (AUTO) 0.9 % (0-2); EOSINOPHILS # (AUTO) 0.4 T/MM3 (0-0.5); EOSINOPHILS % (AUTO) 3.8 % (0-4); HCT - HEMATOCRIT 42.2 % (41-53); HGB - HEMOGLOBIN 14.2 GM/DL (13.5-17.5); IMMATURE GRANULOCYTE # (AUTO) 0.01 T/MM3 (0.00-0.03); IMMATURE GRANULOCYTE % (AUTO) 0.1 % (0.0-0.5); LYMPHOCYTES # (AUTO) 4.7 T/MM3 (1-4.8); LYMPHOCYTES % (AUTO) 50.1 % (23-45); MEAN CORPUSCULAR HGB CONC(MCHC 33.6 GM/DL (31-37); MEAN PLATELET VOLUME 11.4 UM3 (9.4-12.4); MONOCYTES # (AUTO) 0.9 T/MM3 (0-0.8); MONOCYTES % (AUTO) 9.3 % (0-9.0); NEUTROPHILS #(AUTO)-ABSOLUTE 3.3 T/MM3 (1.8-7.7); NEUTROPHILS % (AUTO) 35.8 % (33-66); RED BLOOD COUNT 4.74 M/MM3 (4.50-5.90); WBC - WHITE BLOOD COUNT 9.3 T/MM3 (4.5-11.0)
[2016-11-23 02:24] LABS: INR 0.99 (0.76-1.04); PROTHROMBIN TIME 10.8 SEC (9.31-12.49)
[2016-11-23 02:47] LABS: ANION GAP 14 MEQ/L (5-15); BUN/CREATININE RATIO 13 RATIO (6-26); CALCIUM 9.6 MG/DL (8.4-10.2); CHLORIDE 104 MEQ/L (98-107); CO2 - CARBON DIOXIDE 27 MEQ/L (22-30); CREATININE 0.9 MG/DL (0.8-1.5); GLOMERULAR FILTRATION RATE 92; GLUCOSE 94 MG/DL (75-110); POTASSIUM 3.7 MEQ/L (3.6-5); SODIUM 145 MEQ/L (134-144)
[2016-11-23] MEDS ORDERED: CHOLESTEROL MED PO (02:55)
[2016-11-23 02:59] LABS: PROBNP 105 PG/ML (0-175)
--- OUTSIDE RECORDS SUMMARY | 2016-11-23 03:06 | XMS REPORT | Continuity of Care Document ---
Author Author [facility] Organization [facility] Address Unknown Phone Unavailable Support Name Relationship Address Phone ORESTES AREVALO Caregiver [facility] [address] [place] [address] ALBA VARGHESE MD Caregiver [address] [place] [address] [phone] LITO LEON Next Of Kin Unknown [phone] Insurance Providers Payer Name Policy Number Subscriber Name Relationship [facility] [place] [id number] Bravo Leon 16 Self Advance Directives Directive [...] F (96.8 - 99.1) Temperature (Calculated Celsius) [phone] degrees C (36.0 - 37.3) Pulse Rate [...] Has specimen been collected/obtained? Y Urine Specific [place] August 24, 2014 2:36am 1.025 - Has [...] completed 08/02/14 EMERGENCY DEPT VISIT completed 08/02/14 [id number]"INJECTION, BUPIVICAINE HYDROCHLORIDE, 30 ML" completed 08/02/14 Encounters Encounter Location Date/Time Departed Emergency Room [facility] 08/24/14 1:49am Departed Emergency Room [facility] 08/02/14 12:24pm Recent Diagnosis
--- OUTSIDE RECORDS SUMMARY | 2016-11-23 03:06 | XMS REPORT | Continuity of Care Document ---
Author Author [facility] Organization [facility] Address Unknown Phone Unavailable Allergies Active Description Code Type Severity Reaction Onset Reported/Identified Relationship to Patient Clinical Status Yes No Known Medication Allergies NKMA N/A N/A 01/22/2014 Medications Problems Procedures Results Encounters ACCT No. Visit Date/Time Discharge Status Pt. Type Provider Facility Loc./Unit Complaint [id number] 07/14/2015 13:40:00 2014 23:59:00 DIS Outpatient Shirley Aguilar [facility] [place] rech pneumonia cxr befor jamie [id number] 06/29/2015 13:42:00 2014 23:59:00 DIS Outpatient Shirley Aguilar [facility] [place] HOSP FOLLOW UP [id number] 02/26/2015 14:45:00 2014 23:59:00 DIS Outpatient Buck Dobson T [facility] [place] BLADDER WALL THICKENING [id number] 02/20/2015 12:57:00 2014 23:59:00 DIS Outpatient Oh Murphy [facility] [place] dr leslie wanted his bladder cked [id number] 09/02/2014 10:47:00 2014 23:59:00 DIS Outpatient Oh Murphy [facility] [place] Abominal pain [id number] 08/12/2014 10:27:00 2014 23:59:00 DIS Outpatient Oh Murphy [facility] [place] Stitches removed [id number] 07/09/2014 12:29:00 Document Registration
--- OUTSIDE RECORDS SUMMARY | 2016-11-23 03:06 | XMS REPORT | Continuity of Care Document ---
Author Author [facility] Organization [facility] Address Unknown Phone Unavailable Support Name Relationship Address Phone ALBA VARGHESE MD Caregiver [address] [place] [phone] MAEGAN LOPEZ MD Caregiver [address] [place] [phone] LITO LEON Next Of Kin Unknown [phone] Insurance Providers Payer Name Policy Number Subscriber Name Relationship [facility] [id number] Bravo Leon 16 Self Advance Directives Directive [...] F (96.8 - 99.1) Temperature (Calculated Celsius) 36.20536 degrees C (36.0 - 37.3) Pulse Rate [...] Encounters Encounter Location Date/Time Departed Emergency Room [facility] 08/02/14 12:24pm Recent Diagnosis
[2016-11-23 03:40] VITALS: BP 117/76; PULSE 67; RESP 18; TEMP 97.7; O2SAT 98
--- NOTE | 2016-11-23 03:40 | NUR ---
DEPART PT IS GIVEN DISMISSAL INSTRUCTIONS WITH VERBAL UNDERSTANDING. PT LEAVES AMBULATORY TO ED EXIT
--- NOTE | 2016-11-23 08:00 | DI ---
Indication: ITS.REASON: Sharp left-sided chest pain starting one day ago PROCEDURE: CHEST 1 VIEW: Encounter: Initial Comparison: August 31, 2015 Findings: The lungs are stable in appearance without new focal airspace consolidation. 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 There is no pleural effusion or pneumothorax. The heart size, pulmonary vascularity and mediastinal contours are unchanged. IMPRESSION: Stable appearance of the chest without acute cardiopulmonary disease. .
== END 2016-11-23 03:40 | disposition home or self-care (01) ==
LOC: ED 00:48
DX: M94.0 Chondrocostal junction syndrome [Tietze] (principal)
CPT/HCPCS: 80048; 83880; 84484; 85025; 85379; 85610; 93005